=== PATIENT | male | born 1995 | race Caucasian/White ===

== ENCOUNTER 2021-05-28 19:46 | Emergency (ER) | payer SELFPAY ==
[~2021-05-28] VITALS: Ht 175.3 cm; Wt 77.0 kg
[2021-05-28] MEDS ORDERED: IBUPROFEN 600MG TABLET PO STA (23:15)
[2021-05-29] MEDS ORDERED: NAPR-681 PO (00:26)
[2021-05-29 00:41] VITALS: BP 105/62
== END 2021-05-29 00:41 | disposition home or self-care (01) ==
LOC: EDSEX 19:46 → ER 19:46
DX: S20.219A Contusion of unspecified front wall of thorax, initial encounter (principal); S00.83XA Contusion of other part of head, initial encounter; M25.561 Pain in right knee; Y08.89XA Assault by other specified means, initial encounter; Y93.9 Activity, unspecified; Y92.9 Unspecified place or not applicable
CPT/HCPCS: 71045; 73562; 99284

== ENCOUNTER 2022-04-12 12:11 | Emergency (ER) | payer MEDICAID ==
[~2022-04-12] VITALS: Ht 167.6 cm; Wt 89.0 kg
[~2022-04-12 12:11] MED LIST: NAPR-681 PO
[2022-04-12] MEDS ORDERED: TETRACAINE 0.5% OPHTH DROPS 4ML RIGHTEYE ONE (14:00)
[2022-04-12] MEDS ORDERED: FLUORESCEIN SODIUM 1MG/STRIP RIGHTEYE ONE (14:00)
[2022-04-12] MEDS ORDERED: BALANCED SALT IRRIG SOLN 15ML IR ONE (14:00)
[2022-04-12] MEDS: IBUPROFEN 600MG TABLET PO STA (14:09)
[2022-04-12] MEDS ORDERED: NAPR-681 PO (14:45)
[2022-04-12] MEDS ORDERED: ALBU18HF2 IH (14:45)
[2022-04-12 15:42] VITALS: BP 122/72
== END 2022-04-12 15:43 | disposition home or self-care (01) ==
LOC: ER 12:11
DX: U07.1 COVID-19 (principal)
CPT/HCPCS: 87426; 99283; C9803

== ENCOUNTER 2022-08-17 13:48 | Emergency (ER) | payer MEDICAID ==
[~2022-08-17] VITALS: Ht 175.3 cm; Wt 67.5 kg
[~2022-08-17 13:48] MED LIST changes: +ALBU18HF2 IH
[2022-08-17 14:15] VITALS: BP 113/64
[2022-08-18] MEDS ORDERED: HYDR-4001 PO (05:30)
== END 2022-08-17 15:13 | disposition left against medical advice (07) ==
LOC: ER 13:48
DX: Z53.21 Procedure and treatment not carried out due to patient leaving prior to being seen by health care provider (principal)

== ENCOUNTER 2022-08-17 23:39 | Emergency (ER) | payer MEDICAID ==
[~2022-08-17] VITALS: Ht 175.3 cm; Wt 77.5 kg
[2022-08-18] MEDS ORDERED: HYDR-4001 PO (05:30)
[2022-08-18 06:01] VITALS: BP 131/76
== END 2022-08-18 06:41 | disposition home or self-care (01) ==
LOC: ER 23:39
DX: S52.602A Unspecified fracture of lower end of left ulna, initial encounter for closed fracture (principal); V23.49XA Other motorcycle driver injured in collision with car, pick-up truck or van in traffic accident, initial encounter; Y93.89 Activity, other specified; Y92.488 Other paved roadways as the place of occurrence of the external cause
CPT/HCPCS: 29125; 73090; 73110; 99284